=== PATIENT | female | born 1960 | race Caucasian/White ===

== ENCOUNTER 2017-01-10 11:41 | Observation (INO) ==
--- NOTE | 2017-01-10 12:14 | Emergency Department Note ---
Disposition Clinical Impression: Hyperglycemia Altered mental status Qualifiers: Altered mental status type: disorientation Qualified Code(s): R41.0 - Disorientation, unspecified Disposition: Admitted As Inpatient Condition: Good Time of Disposition: 16:52 General Adult HPI - General Chief complaint: ED General Medical Stated complaint: "want ECF placement immediately" Time Seen by Provider: 01/10/17 11:48 Source: patient, family Limitations: age Nursing Notes Reviewed: Yes Vital Signs Reviewed: Yes - History of Present Illness HPI Narrative: Patient's family states that she has been falling frequently and is unable to care for herself at home. She does live alone. Family states that she cannot remember when or if she has taken her insulin. And that she is getting her medications mixed up. They are concerned for patient's well-being and say that she cannot take care of herself at home by herself. Pain Scale: 0 - Related Data Home Medications Medication Instructions Recorded Confirmed Acetaminophen [Tylenol] 650 mg PO Q6H PRN 01/10/17 01/10/17 Aspirin Enteric Coated [Aspirin EC] 81 mg PO DAILY 01/10/17 01/10/17 Atorvastatin [Lipitor] 40 mg PO HS 01/10/17 01/10/17 Cholecalciferol (D-3) [Vitamin D] 1,000 unit PO DAILY 01/10/17 01/10/17 CloNIDine Patch [Catapres-TTS] 0.1 mg TD QWEEK 01/10/17 01/10/17 DiphenhydraMINE [Benadryl] 25 mg PO Q4H PRN 01/10/17 01/10/17 Furosemide [Lasix] 40 mg PO DAILY 01/10/17 01/10/17 Gabapentin [Neurontin] 300 mg PO BID 01/10/17 01/10/17 Insulin ASPART [Novolog Flexpen] 0 unit SQ TIDWM 01/10/17 01/10/17 Insulin DETEMIR [Levemir Flextouch] 30 unit SQ QAM 01/10/17 01/10/17 Levothyroxine [Synthroid] 150 mcg PO DAILY 01/10/17 01/10/17 Lisinopril [Zestril] 40 mg PO BID 01/10/17 01/10/17 Pantoprazole Sodium [Protonix] 40 mg PO DAILY 01/10/17 01/10/17 Sertraline [Zoloft] 50 mg PO DAILY 01/10/17 01/10/17 Thiamine (B-1) [Vitamin B-1] 100 mg PO DAILY 01/10/17 01/10/17 Tramadol HCl [Ultram] 50 mg PO Q12H PRN 01/10/17 01/10/17 hydrOXYzine HCl [Hydroxyzine HCl] 25 mg PO Q8H PRN 01/10/17 01/10/17 Allergies Allergy/AdvReac Type Severity Reaction Status Date / Time No Known Allergies Allergy Verified 01/10/17 11:47 Review of Systems: Patient denies any fevers or chills. She denies any shortness of breath or chest pain. She does report some left-sided rib pain. She denies any nausea vomiting or diarrhea. She denies any abdominal pain. She denies any edema to her extremities out of the normal for her. She denies any headache or vision changes. She denies any hematochezia or melena or hematuria. All systems ED: reviewed and negative except as stated. Past Medical History - Past Medical History Medical history: Reports: CVA, diabetes, hypertension, myocardial infarction, renal disease, other - Social History Smoking Status: Never smoker Alcohol use: Reports: none Drug use: Reports: none Physical Exam - General Limitations: altered mental status (Confused), age General appearance: in no apparent distress - Head Head exam: atraumatic, normocephalic, normal inspection - Eye Eye exam: Present: normal appearance, PERRL, EOMI. Absent: scleral icterus - ENT ENT exam: normal exam, normal oropharynx, mucous membranes moist - Neck Neck exam: Present: normal inspection, full ROM, trachea midline. Absent: tenderness, meningismus, lymphadenopathy - Chest Chest inspection: Present: normal inspection, symmetric chest wall rise, tenderness (to left ribs.) - Respiratory Respiratory exam: Present: normal lung sounds bilaterally. Absent: respiratory distress, wheezes, accessory muscle use - Cardiovascular Cardiovascular exam: Present: regular rate, normal rhythm, normal heart sounds - Abdominal Exam Abdominal exam: Present: soft, Non-Tender, normal bowel sounds. Absent: tenderness, distention, guarding, rebound, rigidity, organomegaly - Extremities Exam Extremities exam: Present: normal inspection, full ROM, normal capillary refill , pedal edema (Bilateral to mid tibia.). Absent: tenderness - Back Exam Back exam: Present: normal inspection, full ROM. Absent: tenderness - Neurological Exam Neurological exam: Present: alert - Psychiatric Psychiatric exam: Present: normal affect, normal mood - Skin Skin exam: Present: warm, dry, intact, normal color. Absent: rash, cyanosis, diaphoresis, erythema Course Course Narrative: Female patient presenting to the emergency department with her sister. Patient is somewhat confused. Patient's sister states this is normal for her. The sister is expressing concern for the patient. She states the patient has had an increase in her falls recently. She did have a fall week ago that she has been evaluated for and is still complaining of left-sided rib pain. She states she did get x-rays and told there were no fractures. She states the patient is mixing up her medication and does not know when she takes her insulin when she does not. The patient is alert to her name and the month but is unaware of the year or the hospital that she is at. She does not she is in a hospital but she thinks she is at [facility]. The patient states that she has had several falls since her last fall. She does not think that she has lost consciousness since then. Due to patient's altered mental status and frequent falls we will get a head CT. We will also get a chest x-ray and basic lab workup. I anticipate admission for her confusion and inability to care for herself while at home. She does live alone. The sister states that the patient did have home health however they have since canceled their services due to the patient not being able to take care of herself. They are requesting ECF placement. - Reevaluation(s) Reevaluation #1: Patient is hyperglycemic. We have given her 10 units of insulin. Her head CT and chest x-ray are normal. Her lab work is basically normal. We will admit her to the hospital for failure to thrive and altered mental status and hyperglycemia. - Consultations Consultation #1: Mindi ALANIZ accepeted Pt in stable condition and is requesting an ammonia level. I have ordered this. Time: 17:08 Vital Signs Temperature 98.1 F 01/10/17 11:43 Pulse Rate 87 01/10/17 11:43 Respiratory Rate 18 01/10/17 11:43 Blood Pressure 136/59 01/10/17 11:43 O2 Sat by Pulse Oximetry 97 01/10/17 11:43 Temperature 98.2 F 01/11/17 04:29 Pulse Rate 86 01/11/17 04:29 Respiratory Rate 16 01/11/17 04:29 Blood Pressure 167/62 01/11/17 04:29 O2 Sat by Pulse Oximetry 95 01/11/17 04:29 Oxygen Delivery Oxygen Delivery Room Air Medical Decision Making - Medical Records Medical records reviewed: Yes I reviewed the patient's medical records. - Lab Data Lab results reviewed: Yes I reviewed the patient's lab results. Result diagrams: 01/11/17 05:31 01/10/17 13:18 Lab Results 01/10/17 01/10/17 01/10/17 Range/Units 13:16 13:18 13:18 WBC 6.5 (4.3-11.1) K/mcL RBC 2.66 L (3.82-4.97) M/mcL Hgb 8.1 L (11.5-15.4) g/dL Hct 25.7 L (35.3-44.9) % MCV 96.6 (83.0-100.0) fL MCH 30.5 (28.0-33.3) pg MCHC 31.5 L (31.6-35.5) g/dL RDW 18.2 H (11.5-14.5) % Plt Count 258 (140-400) K/mcL MPV 11.8 (9.4-12.4) fL Immature Gran % 0.5 (0-4) % Seg Neutrophils % 70.3 % Lymphocytes % 14.4 % Monocytes % 9.0 % Eosinophils % 5.2 % Basophils % 0.6 % Neutrophils # 4.6 (1.6-8.9) K/mcL Lymphocytes # 0.9 (0.6-4.6) K/mcL Monocytes # 0.6 (0.0-1.3) K/mcL Eosinophils # 0.3 (0.0-0.6) K/mcL Basophils # 0.0 (0.0-0.2) K/mcL Immature Plt Fraction 6.6 H (1.1-6.1) % Sodium 135 L (136-145) mEq/L Potassium 4.4 (3.5-4.5) mEq/L Chloride 94 L (98-109) mEq/L Carbon Dioxide 30 H (19-29) mEq/L BUN 22 H (7-20) mg/dL Creatinine 2.54 H (0.57-1.11) mg/dL Est GFR ( Amer) 24 L (> 60) Est GFR (Non-Af Amer) 20 L (> 60) BUN/Creatinine Ratio 9 (6-26) Glucose 440 H (70-99) mg/dL POC Glucose 418 H* (58-89) Calculated Osmolality 302 H (280-300) Calcium 8.6 (8.6-10.8) mg/dL Troponin I (0-0.03) ng/mL Urine Color (Yellow) Urine Clarity (Clear) Urine pH (5.0-8.0) pH Units Ur Specific [place] (1.010-1.025) Urine Protein (Neg-Trace) mg/dL Urine Glucose (UA) (Normal) mg/dL Urine Ketones (Negative) mg/dL Urine Blood (Negative) Urine Nitrite (Negative) Urine Bilirubin (Negative) Urine Urobilinogen (Normal) mg/dL Ur Leukocyte Esterase (Negative) Urine Microscopic RBC (0-3) per hpf Urine Microscopic WBC (0-3) per hpf Ur Squamous Epith Cells (None-Few) per lpf Urine Bacteria (None-Few) per hpf Ur Culture Indicated? (NO) Stool Occult Blood (Negative) 01/10/17 01/10/17 01/10/17 Range/Units 13:18 15:23 16:13 WBC (4.3-11.1) K/mcL RBC (3.82-4.97) M/mcL Hgb (11.5-15.4) g/dL Hct (35.3-44.9) % MCV (83.0-100.0) fL MCH (28.0-33.3) pg MCHC (31.6-35.5) g/dL RDW (11.5-14.5) % Plt Count (140-400) K/mcL MPV (9.4-12.4) fL Immature Gran % (0-4) % Seg Neutrophils % % Lymphocytes % % Monocytes % % Eosinophils % % Basophils % % Neutrophils # (1.6-8.9) K/mcL Lymphocytes # (0.6-4.6) K/mcL Monocytes # (0.0-1.3) K/mcL Eosinophils # (0.0-0.6) K/mcL Basophils # (0.0-0.2) K/mcL Immature Plt Fraction (1.1-6.1) % Sodium (136-145) mEq/L Potassium (3.5-4.5) mEq/L Chloride (98-109) mEq/L Carbon Dioxide (19-29) mEq/L BUN (7-20) mg/dL Creatinine (0.57-1.11) mg/dL Est GFR ( Amer) (> 60) Est GFR (Non-Af Amer) (> 60) BUN/Creatinine Ratio (6-26) Glucose (70-99) mg/dL POC Glucose 503 H* (58-89) Calculated Osmolality (280-300) Calcium (8.6-10.8) mg/dL Troponin I 0.00 (0-0.03) ng/mL Urine Color (Yellow) Urine Clarity (Clear) Urine pH (5.0-8.0) pH Units Ur Specific [place] (1.010-1.025) Urine Protein (Neg-Trace) mg/dL Urine Glucose (UA) (Normal) mg/dL Urine Ketones (Negative) mg/dL Urine Blood (Negative) Urine Nitrite (Negative) Urine Bilirubin (Negative) Urine Urobilinogen (Normal) mg/dL Ur Leukocyte Esterase (Negative) Urine Microscopic RBC (0-3) per hpf Urine Microscopic WBC (0-3) per hpf Ur Squamous Epith Cells (None-Few) per lpf Urine Bacteria (None-Few) per hpf Ur Culture Indicated? (NO) Stool Occult Blood Positive A (Negative) 01/10/17 01/10/17 Range/Units 16:13 16:27 WBC (4.3-11.1) K/mcL RBC (3.82-4.97) M/mcL Hgb (11.5-15.4) g/dL Hct (35.3-44.9) % MCV (83.0-100.0) fL MCH (28.0-33.3) pg MCHC (31.6-35.5) g/dL RDW (11.5-14.5) % Plt Count (140-400) K/mcL MPV (9.4-12.4) fL Immature Gran % (0-4) % Seg Neutrophils % % Lymphocytes % % Monocytes % % Eosinophils % % Basophils % % Neutrophils # (1.6-8.9) K/mcL Lymphocytes # (0.6-4.6) K/mcL Monocytes # (0.0-1.3) K/mcL Eosinophils # (0.0-0.6) K/mcL Basophils # (0.0-0.2) K/mcL Immature Plt Fraction (1.1-6.1) % Sodium (136-145) mEq/L Potassium (3.5-4.5) mEq/L Chloride (98-109) mEq/L Carbon Dioxide (19-29) mEq/L BUN (7-20) mg/dL Creatinine (0.57-1.11) mg/dL Est GFR ( Amer) (> 60) Est GFR (Non-Af Amer) (> 60) BUN/Creatinine Ratio (6-26) Glucose (70-99) mg/dL POC Glucose 473 H* (58-89) Calculated Osmolality (280-300) Calcium (8.6-10.8) mg/dL Troponin I (0-0.03) ng/mL Urine Color Yellow (Yellow) Urine Clarity Clear (Clear) Urine pH 7.0 (5.0-8.0) pH Units Ur Specific [place] 1.020 (1.010-1.025) Urine Protein >=300 H (Neg-Trace) mg/dL Urine Glucose (UA) 500 H (Normal) mg/dL Urine Ketones Trace H (Negative) mg/dL Urine Blood Trace-intact H (Negative) Urine Nitrite Negative (Negative) Urine Bilirubin Negative (Negative) Urine Urobilinogen Normal (Normal) mg/dL Ur Leukocyte Esterase Negative (Negative) Urine Microscopic RBC 0-3 (0-3) per hpf Urine Microscopic WBC 0-3 (0-3) per hpf Ur Squamous Epith Cells Few (None-Few) per lpf Urine Bacteria Few (None-Few) per hpf Ur Culture Indicated? NO (NO) Stool Occult Blood (Negative) - Radiology Data Radiology results reviewed: Yes I reviewed the patient's radiology results. Chest X-Ray 01/10/17 12:34 IMPRESSION: 1. Low lung volumes with bibasilar atelectasis. D/ / 01/10/2017 13:54:13 Zachery Frazier MD / Jo Ann Kang Interpreting Provider: Zachery Frazier MD Head CT 01/10/17 12:34 IMPRESSION: No acute intracranial abnormality. D/ / Amaury Cobian MD / Amaury Cobian MD Interpreting Provider: Amaury Cobian MD Attestation Statement - Attestation Attestation: I, Joseph Suarez, examined this patient and my medical decision-making was reviewed with the BRICK WASHER/PA/Advanced Practice Nurse/Resident Physician. I agree with the documented findings, disposition and treatment plan as described except to the extent set forth below. 57-year-old female brought in by family member for concerns of inability to live at home alone. Patient was recently admitted to [facility] for DKA/HHS with a blood sugar of 1500 for the patient. She was discharged within the past week with home health services. Home health services determined the patient to be unsafe to stay at home alone and refused to take responsibility for the patient. Patient was seen by her primary care provider or Center in the emergency department for placement in an extended care facility. Upon arrival the patient is mildly confused, thinking that we are in [place] at this time. Laboratory evaluation the patient does have a hemoglobin 8.1 and an occult blood positive stool. Patient denies recent hematochezia or melena and does not know what her baseline hemoglobin is. Patient has a blood sugar that is greater than 450, she was given insulin in the emergency department. She does not have an anion gap here today. Patient is still mildly confused and will be admitted to the hospital for anemia with GI bleeding as well as for altered mental status. She will likely need placement in a extended care facility.
[2017-01-10 13:28] LABS: Basophils % 0.6 %; Eosinophils # 0.3 K/mcL (0.0-0.6); Eosinophils % 5.2 %; Hematocrit 25.7 % (35.3-44.9); Hemoglobin 8.1 g/dL (11.5-15.4); Immature Granulocytes % 0.5 % (0-4); Immature Platelets 6.6 % (1.1-6.1); Lymphocytes # 0.9 K/mcL (0.6-4.6); Lymphocytes % 14.4 %; Mean Corpuscular HGB Conc 31.5 g/dL (31.6-35.5); Mean Corpuscular Hemoglobin 30.5 pg (28.0-33.3); Mean Corpuscular Volume 96.6 fL (83.0-100.0); Mean Platelet Volume 11.8 fL (9.4-12.4); Monocytes # 0.6 K/mcL (0.0-1.3); Neutrophils # 4.6 K/mcL (1.6-8.9); Platelet Count 258 K/mcL (140-400); Red Blood Count 2.66 M/mcL (3.82-4.97); Red Cell Distribution Width 18.2 % (11.5-14.5); Segmented Neutrophils % 70.3 %
[2017-01-10 13:42] LABS: Calcium 8.6 mg/dL (8.6-10.8); Potassium 4.4 mEq/L (3.5-4.5)
[2017-01-10] MEDS: Insulin Regular, Human 100 UNIT/ML SQ ONE ×2 (15:29→20:59)
[2017-01-10 16:43] LABS: Bilirubin,Urine Negative (Negative); Blood,Urine Trace-intact (Negative); Clarity,Urine Clear (Clear); Color,Urine Yellow (Yellow); Glucose,Urine (UA) 500 mg/dL (Normal); Ketones,Urine Trace mg/dL (Negative); Leukocyte Esterase,Urine Negative (Negative); Nitrite,Urine Negative (Negative); Protein,Urine >=300 mg/dL (Neg-Trace); Urobilinogen,Urine Normal (Normal)
[2017-01-10 16:55] LABS: Bacteria,Urine Few per hpf (None-Few); RBC,Urine 0-3 per hpf (0-3); Squamous Epithelial Cell,Urine Few per lpf (None-Few); WBC,Urine 0-3 per hpf (0-3)
[2017-01-10] MEDS ORDERED: Naloxone 0.4 MG/ML INJ IVP PRN (20:32)
[2017-01-10] MEDS ORDERED: Dextrose Gel 15 GM PO PRN ×2 (20:34)
[2017-01-10] MEDS ORDERED: hydrOXYzine pamoate 25 MG CAPSULE PO PRN (20:34)
[2017-01-10] MEDS ORDERED: D5% in Water 1,000 ML IVC PRN (20:34)
[2017-01-10] MEDS ORDERED: traMADol 50 MG TABLET PO PRN (20:34)
[2017-01-10] MEDS ORDERED: *HR* Dextrose 50 % in Water (Syg) 50 ML SYRINGE IVP PRN (20:34)
[2017-01-10] MEDS ORDERED: CloNIDine Patch 0.1 MG PATCH (WEEKLY) TD SCH (20:45)
--- NOTE | 2017-01-10 20:55 | Internal Med History&Physical ---
Date of Encounter: 01/10/17 Time of Encounter: 20:52 Assessment and Plan (1) Encephalopathy Current visit: Yes Status: Acute With reported confusion prior to admission. Neurologically intact, LOC [address] Head CT negative, ammonia level normal. Appears back to baseline. Will hold on further workup at this time. Consider MRI, neurology consult if symptoms recur (2) GI bleed Current visit: Yes Status: Acute Hgb 8.1, occult stool positive. Baseline hemoglobin unknown. No active bleeding, denies melena. Trend Hgb, transfuse for Hgb less than 7 as she does have history of CAD. Plan is for her to go to SNF at discharge and with hemoglobin being borderline she would likely need to be seen by GI in house. Electronic consult for GI placed; will need to be called in in the morning then consider outpatient follow-up. Qualifiers: GI bleed type/associated pathology: melena Qualified Code(s): K92.1 - Melena (3) Diabetes Current visit: Yes Status: Acute Per history and uncontrolled. Apparently has not been taking medications as prescribed. Blood sugar greater than 400 on admission received 10 units insulin in the ED. Continue home long-acting insulin, add sliding scale insulin while inpatient. Monitor blood sugars and titrate when necessary. Hgb A1c pending. Qualifiers: Diabetes mellitus type: type 2 Diabetes mellitus complication status: with hyperglycemia Diabetes mellitus assisted insulin use: with assisted use Qualified Code(s): E11.65 - Type 2 diabetes mellitus with hyperglycemia; Z79.4 - equipment operator intermodal yard (current) use of insulin (4) ESRD (end stage renal disease) Current visit: Yes Status: Acute Per history. HD on Saturday//Saturday. Nephrology will need consult and in the a.m. (5) CVA (cerebral vascular accident) Current visit: Yes Status: Acute Per history with left-sided weakness. Holding home ASA with possible GI bleed, continue statin. Qualifiers: Qualified Code(s): I63.9 - Cerebral infarction, unspecified (6) CAD (coronary artery disease), [place] coronary artery Current visit: Yes Status: Acute Per history. Asymptomatic, denies chest pain. Holding home aspirin with possible GI bleed continue statin. Qualifiers: Qualified Code(s): I25.10 - Atherosclerotic heart disease of [place] coronary artery without angina pectoris (7) DVT prophylaxis Current visit: Yes Status: Acute SCD Internal Medicine - H&P: HPI Chief complaint: falls Admitted From: Home Plans for Post Hospital Care: [facility] History of present illness: Ms. Solis is a 57 year old female end-stage renal disease on HD, CVA, diabetes , CAD who presented to [facility] on 01/10/2017 from home with complaints of frequent falls and intermittent confusion. She is requesting custodial placement. She is placed in observation status. Formation obtained from chart review and patient report patient says it she has been intermittently confused and falling for the past 2 years, she is followed twice this past week her sister was concerned therefore brought her to the emergency room. On my exam she has no complaints except for being hungry and wanting to eat she does tell me that she does not feel that she can safely go home and that she does need help with her medicine she denies chest pain no shortness of breath no abdominal pain and nausea vomiting or diarrhea. Past Med Surg Social Fam HX - Past Medical History Medical history: CVA, diabetes, hypertension, myocardial infarction, renal disease, other - Past Surgical History Surgical History: non-contributory - Social History Smoking Status: Never smoker Alcohol use: none Drug use: none - Family History Mother History Unknown: Yes Internal Medicine - H&P: Meds Acetaminophen [Tylenol] 650 mg PO Q6H PRN 01/10/17 [History] Aspirin Enteric Coated [Aspirin EC] 81 mg PO DAILY 01/10/17 [History] Atorvastatin [Lipitor] 40 mg PO HS 01/10/17 [History] Cholecalciferol (D-3) [Vitamin D] 1,000 unit PO DAILY 01/10/17 [History] CloNIDine Patch [Catapres-TTS] 0.1 mg TD QWEEK 01/10/17 [History] DiphenhydraMINE [Benadryl] 25 mg PO Q4H PRN 01/10/17 [History] Furosemide [Lasix] 40 mg PO DAILY 01/10/17 [History] Gabapentin [Neurontin] 300 mg PO BID 01/10/17 [History] Insulin ASPART [Novolog Flexpen] 0 unit SQ TIDWM 01/10/17 [History] Insulin DETEMIR [Levemir Flextouch] 30 unit SQ QAM 01/10/17 [History] Levothyroxine [Synthroid] 150 mcg PO DAILY 01/10/17 [History] Lisinopril [Zestril] 40 mg PO BID 01/10/17 [History] Pantoprazole Sodium [Protonix] 40 mg PO DAILY 01/10/17 [History] Sertraline [Zoloft] 50 mg PO DAILY 01/10/17 [History] Thiamine (B-1) [Vitamin B-1] 100 mg PO DAILY 01/10/17 [History] Tramadol HCl [Ultram] 50 mg PO Q12H PRN 01/10/17 [History] hydrOXYzine HCl [Hydroxyzine HCl] 25 mg PO Q8H PRN 01/10/17 [History] Allergies No Known Allergies Allergy (Verified 01/10/17 11:47) All Systems PM: A 10-system review of systems was performed and is negative for pertinent findings except as documented above in the HPI. - Constitutional Constitutional: fatigue, no chills, no fever(s), no night sweats - EENT Eyes: no change in vision, no discharge, no pain, no photophobia Ears: no ear discharge, no ear pain, no tinnitus Nose, mouth and throat: no dysphagia, no nasal discharge, no neck pain, no sore throat - Cardiovascular Cardiovascular ROS IM: no chest pain, no diaphoresis, no dyspnea, no lightheadedness, no palpitations, no syncope - Respiratory Respiratory: no cough, no dyspnea, no wheezing, no excessive phlegm production - Gastrointestinal Gastrointestinal: no abdominal pain, no diarrhea, no hematemesis, no hematochezia, no melena, no nausea, no vomiting - Genitourinary Genitourinary: no change in urinary stream, no dysuria, no flank pain, no hematuria - Musculoskeletal Musculoskeletal ROS IM: no numbness, no tingling - Integumentary Integumentary IM: no rash, no unusual bruising - Neurological Neurological ROS: no confusion, no convulsions, no focal weakness, no numbness, no tingling, no tremor(s) - Hematologic/Lymphatic Hematologic/Lymphatic: no easy bruising - Constitutional Vitals: Temp Pulse Resp BP Pulse Ox 98.0 F 76 18 136/66 94 01/10/17 18:59 01/10/17 18:59 01/10/17 18:59 01/10/17 18:59 01/10/17 18:59 General appearance: Present: A&O X 3, no acute distress - Head Head exam: Present: atraumatic, normocephalic - Eye Eye exam: Present: PERRL, conjuntiva pink, sclera anicteric Pupils: Present: PERRL - Neck Neck exam general surgery: Present: supple, trachea midline. Absent: lymphadenopathy - Respiratory Respiratory exam: Present: CTAB. Absent: accessory muscle use, rales, rhonchi, wheezes - Cardiovascular Cardiovascular exam: Present: RRR, +S1, +S2. Absent: diastolic murmur, gallop, rubs, systolic murmur - GI/Abdominal GI/Abdominal exam: Present: normal bowel sounds, soft, no peritoneal signs. Absent: distended, tenderness - Extremities Exam Extremities exam: Present: warm, radial pulses palpable and symetrical. Absent : calf tenderness, cyanotic, pedal edema Additional comments: Right upper arm fistula positive/positive - Neurological Exam Neurological exam: Present: CN II-XII intact, oriented X3, no focal deficits. Absent: pronater drift, facial droop, speech deficit Additional comments: Left-sided weakness strength 4 out of 5. - Skin Skin exam: Present: dry, intact Internal Med - H&P Results - Labs CBC & Chem 7: 01/10/17 13:18 01/10/17 13:18
[2017-01-10] MEDS ORDERED: Insulin LISPRO 300 UNITS/3 ML VIAL SQ SCH (21:00)
[2017-01-10 21:24] LABS: Hemoglobin A1C 7.8 %
[2017-01-10] MEDS ORDERED: *HR* Heparin 5,000 UNIT/ML VIAL SQ SCH (22:00)
[2017-01-10] MEDS: Gabapentin 300 MG CAPSULE PO SCH (23:10)
[2017-01-10] MEDS: Lisinopril 20 MG TABLET PO SCH (23:10)
[2017-01-11 06:02] LABS: Basophils % 0.6 %; Eosinophils # 0.4 K/mcL (0.0-0.6); Eosinophils % 7.8 %; Hematocrit 25.7 % (35.3-44.9); Hemoglobin 7.9 g/dL (11.5-15.4); Immature Granulocytes % 0.6 % (0-4); Lymphocytes # 0.9 K/mcL (0.6-4.6); Lymphocytes % 19.1 %; Mean Corpuscular HGB Conc 30.7 g/dL (31.6-35.5); Mean Corpuscular Volume 97.7 fL (83.0-100.0); Mean Platelet Volume 11.8 fL (9.4-12.4); Monocytes # 0.4 K/mcL (0.0-1.3); Monocytes % 9.1 %; Neutrophils # 3.1 K/mcL (1.6-8.9); Platelet Count 278 K/mcL (140-400); Red Blood Count 2.63 M/mcL (3.82-4.97); Red Cell Distribution Width 17.7 % (11.5-14.5); Retculocyte # 0.04 M/mcL (0.05-0.10); Reticulocyte % 1.6 % (1.6-2.8); Segmented Neutrophils % 62.8 %
[2017-01-11 06:29] LABS: % Iron Saturation 44 % (15-50); Iron 88 mcg/dL (50-170); Lactate Dehydrogenase 261 Units/L (159-327); Transferrin 142 mg/dL (180-382)
[2017-01-11 07:03] LABS: Folate 8.3 ng/mL (7.0-31.4)
[2017-01-11] MEDS ORDERED: Insulin LISPRO 300 UNITS/3 ML VIAL SQ SCH ×2 (07:30→21:00)
[2017-01-11] MEDS: Lisinopril 20 MG TABLET PO SCH ×2 (08:55→20:06)
[2017-01-11] MEDS: Furosemide 40 MG TABLET PO SCH (08:57)
[2017-01-11] MEDS: Gabapentin 300 MG CAPSULE PO SCH ×2 (08:57→20:06)
[2017-01-11] MEDS: Insulin DETEMIR 100 UNIT/ML X5UNITS SQ SCH (08:57)
[2017-01-11] MEDS ORDERED: Insulin Human Regular 10 UNIT in 0.9 % Sodium Chloride 10 ML IV ONE (09:00)
--- NOTE | 2017-01-11 09:20 | Nephrology Consult Note ---
Date of Encounter: 01/11/17 Time of Encounter: : Assessment and Plan (1) ESRD (end stage renal disease) Current Visit: Yes Status: Acute Patient reports a history of end-stage renal disease related to diabetic renal disease. Her last dialysis was yesterday. We will provide dialysis every Saturday while she is here in the hospital. Iron studies should be checked if they have not already. Could also get her started on some Aranesp. (2) Type 2 diabetes mellitus with diabetic chronic kidney disease Current Visit: Yes Status: Acute Qualifiers: Diabetes mellitus director long term care insulin use: with director long term care use Chronic kidney disease stage: on chronic dialysis Qualified Code(s): E11.22 - Type 2 diabetes mellitus with diabetic chronic kidney disease; N18.6 - End stage renal disease; Z79.4 - shelter (current) use of insulin; Z99.2 - Dependence on renal dialysis (3) GI bleed Current Visit: Yes Status: Acute Qualifiers: GI bleed type/associated pathology: melena Qualified Code(s): K92.1 - Melena History of Present Illness - History of Present Illness This is a 57-year-old female who reports a history of end-stage renal disease. She says she undergoes dialysis every Saturday in [facility]. She has been on dialysis since March 24. She reports a history of long-standing diabetes and says that she has end-stage renal disease related to diabetes. She dialyzes for 4 hours with a left-sided tunneled dialysis catheter. She has an AV fistula in the right arm which is not yet mature. She is followed by the nephrology group from [facility]. Patient was admitted because of frequent falls. She also was noted to have a low hemoglobin in the face of guaiac positive stools. Currently she is without any specific complaints. Past Med Surg Social Fam HX - Past Medical History Medical history: CVA, diabetes, hypertension, myocardial infarction, renal disease, other - Past Surgical History Surgical History: non-contributory - Social History Smoking Status: Never smoker Alcohol use: none Drug use: none - Family History Mother History Unknown: Yes Medications and Allergies Acetaminophen [Tylenol] 650 mg PO Q6H PRN 01/10/17 [History] Aspirin Enteric Coated [Aspirin EC] 81 mg PO DAILY 01/10/17 [History] Atorvastatin [Lipitor] 40 mg PO HS 01/10/17 [History] Cholecalciferol (D-3) [Vitamin D] 1,000 unit PO DAILY 01/10/17 [History] CloNIDine Patch [Catapres-TTS] 0.1 mg TD QWEEK 01/10/17 [History] DiphenhydraMINE [Benadryl] 25 mg PO Q4H PRN 01/10/17 [History] Furosemide [Lasix] 40 mg PO DAILY 01/10/17 [History] Gabapentin [Neurontin] 300 mg PO BID 01/10/17 [History] Insulin ASPART [Novolog Flexpen] 0 unit SQ TIDWM 01/10/17 [History] Insulin DETEMIR [Levemir Flextouch] 30 unit SQ QAM 01/10/17 [History] Levothyroxine [Synthroid] 150 mcg PO DAILY 01/10/17 [History] Lisinopril [Zestril] 40 mg PO BID 01/10/17 [History] Pantoprazole Sodium [Protonix] 40 mg PO DAILY 01/10/17 [History] Sertraline [Zoloft] 50 mg PO DAILY 01/10/17 [History] Thiamine (B-1) [Vitamin B-1] 100 mg PO DAILY 01/10/17 [History] Tramadol HCl [Ultram] 50 mg PO Q12H PRN 01/10/17 [History] hydrOXYzine HCl [Hydroxyzine HCl] 25 mg PO Q8H PRN 01/10/17 [History] Allergies No Known Allergies Allergy (Verified 01/10/17 11:47) Review of Systems Constitutional: weakness Eyes: bilateral: blurred vision (patient denies), diplopia (patient denies) Nose, mouth and throat: no dizziness, no headache(s) Cardiovascular: dyspnea on exertion, no chest pain, no palpitations Respiratory: dyspnea on exertion, no cough, no dyspnea Gastrointestinal: no abdominal pain, no change in bowel habits Musculoskeletal: no muscle weakness, no numbness Integumentary: no hirsutism, no striae Neurological: as per HPI Psychiatric: no depression, no difficulty concentrating Endocrine: as per HPI Hematologic/Lymphatic: no easy bruising, no lymphadenopathy Exam - Vital Signs Vital signs: Initial Vital Signs Temp Pulse Resp BP Pulse Ox 98.1 F 87 18 136/59 97 01/10/17 11:43 01/10/17 11:43 01/10/17 11:43 01/10/17 11:43 01/10/17 11:43 Vital Signs - Last 8 Hours Temp Pulse Resp BP Pulse Ox 01/11/17 08:27 98.3 F 91 17 192/113 94 01/11/17 04:29 98.2 F 86 16 167/62 95 Intake and Output 01/10/17 01/11/17 01/11/17 23:59 07:59 15:59 Intake Total 120 / 120 240 / 240 360 / 360 Output Total 0 / 0 Balance 120 / 120 240 / 240 360 / 360 Intake: Oral 120 / 120 240 / 240 360 / 360 Output: Urine 0 / 0 Other: Meal Breakfast Percent of Meal Consumed 100% Stool Size Moderate Moderate Stool Consistency formed Stool Color Brown Brown Yellow Yellow # Voids 1 # Bowel Movements 1 1 Weight 82.2 kg Blood Glucose* 276 537 Patient Weight 01/11/17 23:59 Weight 82.2 kg - General Appearance Exam: The patient is alert and oriented. She is in no acute distress. Neck is supple. Lungs clear to auscultation anteriorly. Heart regular rate and rhythm with a 2/6 systolic ejection murmur. Abdomen shows normal bowel sounds. No bruits masses again a megaly or tenderness. There is minimal lower extremity swelling. There is a tunnel dialysis catheter in the left chest. There is a functioning AV fistula in the upper portion of the right upper extremity. Results - Lab Results 01/11/17 05:31 01/10/17 13:18 Most recent lab results Calcium 8.6 mg/dL (8.6-10.8) 01/10/17 13:18 Consult Discharge Plan - Plan Referrals: Nohemi Jewell DO [Primary Care Provider] -
[2017-01-11] MEDS ORDERED: traMADol 50 MG TABLET PO PRN (09:25)
[2017-01-11] MEDS ORDERED: Acetaminophen 325 MG TABLET PO PRN (09:25)
[2017-01-11] MEDS ORDERED: Darbepoetin 100 MCG/0.5 ML SYRINGE SQ SCH (09:30)
[2017-01-11 10:54] LABS: % Iron Saturation 37 % (15-50); Iron 73 mcg/dL (50-170); Transferrin 142 mg/dL (180-382)
[2017-01-11 11:45] LABS: Ferritin 2596 ng/ml (5-204)
[2017-01-11] MEDS: Insulin LISPRO 300 UNITS/3 ML VIAL SQ SCH ×4 (12:01→19:42)
[2017-01-11 12:05] LABS: Hematocrit 27.7 % (35.3-44.9); Hemoglobin 8.5 g/dL (11.5-15.4)
--- NOTE | 2017-01-11 14:15 | Internal Med Progress Note ---
Date of Encounter: 01/11/17 Time of Encounter: 09:15 - Assessment and plan (1) Anemia Current Visit: Yes Status: Chronic Assessment and plan: Hemoglobin levels remain stable. Stools were positive for blood. Patient will need colonoscopy but this can be done as outpatient as patient is not having any active GI bleed and her vital signs are stable. Labs show normal iron, folic acid and vitamin B12 levels. Continue Aranesp per nephrology recommendations Qualifiers: Anemia type: other cause Other causes of anemia: chronic disease, kidney Qualified Code(s): N18.9 - Chronic kidney disease, unspecified; D63.1 - Anemia in chronic kidney disease (2) CAD (coronary artery disease), [place] coronary artery Current Visit: Yes Status: Chronic Assessment and plan: Will resume aspirin and statin Qualifiers: [place] vs. transplanted heart: [place] heart Associated angina: without angina Qualified Code(s): I25.10 - Atherosclerotic heart disease of [place] coronary artery without angina pectoris (3) CVA (cerebral vascular accident) Current Visit: Yes Status: Chronic Assessment and plan: No focal weakness or numbness. Continue aspirin and statin Qualifiers: CVA mechanism: other Qualified Code(s): I63.8 - Other cerebral infarction (4) Diabetes Current Visit: Yes Status: Chronic Assessment and plan: Uncontrolled. Patient's blood sugar this morning was 537. Will increase insulin regimen. Monitor blood sugars closely. We will adjust insulin regimen according to her blood sugars. Qualifiers: Diabetes mellitus type: type 2 Diabetes mellitus complication status: with hyperglycemia Diabetes mellitus rat exterminator insulin use: with rat exterminator use Qualified Code(s): E11.65 - Type 2 diabetes mellitus with hyperglycemia; Z79.4 - joint terminal attack controller (current) use of insulin (5) Encephalopathy Current Visit: Yes Status: Resolved Assessment and plan: This has now resolved (6) ESRD (end stage renal disease) Current Visit: Yes Status: Chronic Assessment and plan: Nephrology consulted. Patient will receive hemodialysis while she was in the hospital according to TTS schedule (7) GI bleed Current Visit: Yes Status: Suspected Assessment and plan: Patient denies any hematochezia or melena. Her hemoglobin counts are stable. She did have colonoscopy 3 years back and his family history of colon cancer. We will recommend colonoscopy and upper GI endoscopy but this can be done as outpatient as patient's hemoglobin counts have stabilized and she does have underlying chronic kidney disease which is the more likely cause for her anemia given that her iron levels are normal. Qualifiers: GI bleed type/associated pathology: melena Qualified Code(s): K92.1 - Melena - Subjective Interval history: Patient is feeling better today. Denies any dizziness or lightheadedness. Is well oriented. Denies any pain. No melena or hematochezia. - Constitutional Vitals: Temp Pulse Resp BP Pulse Ox 98.5 F 81 16 127/72 98 01/11/17 12:04 01/11/17 12:04 01/11/17 12:04 01/11/17 12:04 01/11/17 12:04 General appearance: Present: cooperative, A&O X 3, no acute distress, answers questions appropriately - Neck Neck exam general surgery: Present: supple, trachea midline. Absent: lymphadenopathy - Respiratory Respiratory exam: Present: CTAB. Absent: accessory muscle use, rales, rhonchi, wheezes - Cardiovascular Cardiovascular exam: Present: RRR, +S1, +S2. Absent: diastolic murmur, gallop, rubs, systolic murmur - GI/Abdominal GI/Abdominal exam: Present: normal bowel sounds, soft, no peritoneal signs. Absent: distended, tenderness - Extremities Exam Extremities exam: Present: warm, radial pulses palpable and symetrical. Absent : calf tenderness, cyanotic, pedal edema - Neurological Exam Neurological exam: Present: CN II-XII intact, oriented X3, no focal deficits, strengths equal and symetr throughout. Absent: facial droop, speech deficit - Skin Skin exam: Present: dry, intact, pallor Internal Medicine: Result - Labs CBC & Chem 7: 01/11/17 11:53 01/10/17 13:18 Labs: Short CBC 01/11/17 01/11/17 Range/Units 05:31 11:53 WBC 4.9 (4.3-11.1) K/mcL Hgb 7.9 L 8.5 L (11.5-15.4) g/dL Hct 25.7 L 27.7 L (35.3-44.9) % Plt Count 278 (140-400) K/mcL Neutrophils # 3.1 (1.6-8.9) K/mcL Consult Discharge Plan - Plan Referrals: Little,Nohemi E, DO [Primary Care Provider] - - Attending Attestation This document has been at least partially created by [employer] recognition technology by Dr. Graham. Errors in grammar, wording or other phrases may exist. If errors are found after the documentation is signed, they will be addressed individually in the addendum section of this document when appropriate.
[2017-01-12] MEDS: *HR* OxyCODONE/APAP 5/325 TABLET PO PRN ×2 (00:53→20:34)
[2017-01-12 02:56] LABS: Basophils % 0.3 %; Eosinophils # 0.6 K/mcL (0.0-0.6); Eosinophils % 8.8 %; Hemoglobin 8.1 g/dL (11.5-15.4); Immature Granulocytes % 0.4 % (0-4); Lymphocytes # 1.4 K/mcL (0.6-4.6); Lymphocytes % 19.1 %; Mean Corpuscular HGB Conc 31.2 g/dL (31.6-35.5); Mean Corpuscular Hemoglobin 30.3 pg (28.0-33.3); Mean Corpuscular Volume 97.4 fL (83.0-100.0); Mean Platelet Volume 11.7 fL (9.4-12.4); Monocytes # 0.6 K/mcL (0.0-1.3); Monocytes % 8.5 %; Neutrophils # 4.4 K/mcL (1.6-8.9); Platelet Count 298 K/mcL (140-400); Red Blood Count 2.67 M/mcL (3.82-4.97); Red Cell Distribution Width 17.6 % (11.5-14.5); Segmented Neutrophils % 62.9 %
[2017-01-12 03:18] LABS: Albumin 2.5 g/dL (3.5-5.0); Albumin/Globulin Ratio 0.7 (1.1-2.2); Bilirubin,Total 0.3 mg/dL (0.2-1.2); Calcium 8.5 mg/dL (8.6-10.8); Globulin 3.7 g/dL (2.4-3.5); Potassium 4.6 mEq/L (3.5-4.5); Total Protein 6.2 g/dL (6.0-8.3)
[2017-01-12] MEDS ORDERED: *HR* Heparin 5,000 UNIT/ML VIAL IVP ONE (05:34)
[2017-01-12] MEDS ORDERED: *HR* Heparin 5,000 UNIT/ML VIAL IVP PRN ×2 (05:34)
[2017-01-12 06:25] LABS: Prothrombin Time 10.3 Seconds (9.4-12.1)
[2017-01-12 06:27] LABS: Activated Partial Thrombo Time 31.5 Seconds (26.0-36.0)
[2017-01-12 06:36] LABS: Hematocrit 25.6 % (35.3-44.9); Mean Corpuscular HGB Conc 31.3 g/dL (31.6-35.5); Mean Corpuscular Hemoglobin 30.2 pg (28.0-33.3); Mean Corpuscular Volume 96.6 fL (83.0-100.0); Mean Platelet Volume 11.5 fL (9.4-12.4); Platelet Count 304 K/mcL (140-400); Red Blood Count 2.65 M/mcL (3.82-4.97); Red Cell Distribution Width 17.5 % (11.5-14.5)
[2017-01-12] MEDS: Insulin LISPRO 300 UNITS/3 ML VIAL SQ SCH ×4 (07:43→20:36)
--- NOTE | 2017-01-12 08:08 | Nephrology Progress Note ---
Date of Encounter: 01/12/17 Time of Encounter: 08:06 - Assessment and Plan (1) ESRD (end stage renal disease) Current Visit: Yes Status: Chronic Patient will undergo dialysis today. Orders have been submitted. She continues on Aranesp for her anemia. She is awaiting discharge to an extended care facility. (2) Type 2 diabetes mellitus with diabetic chronic kidney disease Current Visit: Yes Status: Acute Qualifiers: Diabetes mellitus intermediate school teacher insulin use: with intermediate school teacher use Chronic kidney disease stage: on chronic dialysis Qualified Code(s): E11.22 - Type 2 diabetes mellitus with diabetic chronic kidney disease; N18.6 - End stage renal disease; Z79.4 - terminal computer operator (current) use of insulin; Z99.2 - Dependence on renal dialysis (3) GI bleed Current Visit: Yes Status: Suspected Qualifiers: GI bleed type/associated pathology: melena Qualified Code(s): K92.1 - Melena Subjective Interval history: Patient reports no new complaints. She scheduled for dialysis today. Hemoglobin is 8.0. Iron studies vitamin B12 and folate are within normal limits. She has been placed on Aranesp. Objective - Vital Signs Vital signs: Vital Signs Temp Pulse Resp BP Pulse Ox 01/12/17 07:54 97.9 F 81 17 181/84 94 01/12/17 05:31 88 169/79 01/12/17 04:41 98.3 F 77 16 172/89 93 01/12/17 00:09 97.9 F 83 16 160/84 98 01/11/17 19:09 98.2 F 79 17 139/83 97 01/11/17 12:04 98.5 F 81 16 127/72 98 01/11/17 12:02 127/72 01/11/17 09:48 153/76 01/11/17 08:27 98.3 F 91 17 192/113 94 Intake and Output 01/11/17 01/12/17 01/12/17 23:59 07:59 15:59 Intake Total 0 / 0 Output Total 120 / 120 Balance 0 / 0 -120 / -120 Intake: Oral 0 / 0 Output: Urine 120 / 120 Other: Weight 85.2 kg Blood Glucose* 101 141 Patient Weight 01/12/17 23:59 Weight 85.2 kg - General Appearance Exam: Patient is alert and oriented. She is in no acute distress. Lungs clear to auscultation. Heart regular rate and rhythm. Abdomen benign. No peripheral edema. There is a tunnel dialysis catheter in the left chest and a new AV fistula in the right upper extremity. - Lab 01/12/17 05:45 01/12/17 02:29 Most recent lab results Calcium 8.5 mg/dL (8.6-10.8) L 01/12/17 02:29 Consult Discharge Plan - Plan Referrals: Nohemi Jewell DO [Primary Care Provider] -
[2017-01-12] MEDS ORDERED: 0.9 % Sodium Chloride 250 ML IVC PRN (08:09)
[2017-01-12] MEDS: Gabapentin 300 MG CAPSULE PO SCH ×2 (08:15→20:35)
[2017-01-12] MEDS: Insulin DETEMIR 100 UNIT/ML X5UNITS SQ SCH (08:16)
[2017-01-12] MEDS: Lisinopril 20 MG TABLET PO SCH ×2 (09:00→20:34)
[2017-01-12] MEDS ORDERED: amLODIPine 5 MG TABLET PO SCH (09:00)
[2017-01-12 10:04] LABS: Amphetamine Screen,Urine Negative ng/mL (Cutoff=1000); Barbiturate Screen,Urine Negative ng/mL (Cutoff=200); Benzodiazepines Screen,Urine Negative ng/mL (Cutoff=200); Cannabinoid Screen,Urine Negative ng/mL (Cutoff = 50); Cocaine Screen,Urine Negative ng/mL (Cutoff= 300); Opiate Screen,Urine Negative ng/mL (Cutoff=300); Phencyclidine Screen,Urine Negative ng/mL (Cutoff=25)
--- NOTE | 2017-01-12 13:58 | Internal Med Progress Note ---
Date of Encounter: 01/12/17 Time of Encounter: 09:10 - Assessment and plan (1) Anemia Current Visit: Yes Status: Chronic Assessment and plan: Hemoglobin levels are stable. We will continue to monitor. Iron levels are within normal limits. Vitamin B12 and folic acid levels were also within normal limits. Patient has chronic anemia related to chronic kidney disease. Qualifiers: Anemia type: other cause Other causes of anemia: chronic disease, kidney Qualified Code(s): N18.9 - Chronic kidney disease, unspecified; D63.1 - Anemia in chronic kidney disease (2) CAD (coronary artery disease), [place] coronary artery Current Visit: Yes Status: Chronic Assessment and plan: Will resume aspirin. Continue statin, and lisinopril. Qualifiers: [place] vs. transplanted heart: [place] heart Associated angina: without angina Qualified Code(s): I25.10 - Atherosclerotic heart disease of [place] coronary artery without angina pectoris (3) CVA (cerebral vascular accident) Current Visit: Yes Status: Chronic Assessment and plan: Will resume aspirin. Continue statin. Physical therapy. Qualifiers: CVA mechanism: other Qualified Code(s): I63.8 - Other cerebral infarction (4) Diabetes Current Visit: Yes Status: Chronic Assessment and plan: Patient is having hypoglycemic episodes. We will decrease insulin regimen and monitor blood sugars closely. Qualifiers: Diabetes mellitus type: type 2 Diabetes mellitus complication status: with hypoglycemia Diabetes mellitus complication detail: without coma Diabetes mellitus projects manager insulin use: with projects manager use Qualified Code(s): E11.649 - Type 2 diabetes mellitus with hypoglycemia without coma; Z79.4 - skilled nursing ( current) use of insulin (5) Encephalopathy Current Visit: Yes Status: Resolved (6) ESRD (end stage renal disease) Current Visit: Yes Status: Chronic Assessment and plan: Continue dialysis per nephrology recommendations. (7) GI bleed Current Visit: Yes Status: Suspected Assessment and plan: Hemoglobin levels are stable. Patient may need colonoscopy as outpatient. Currently not having any melena or hematochezia. Qualifiers: GI bleed type/associated pathology: melena Qualified Code(s): K92.1 - Melena - Subjective Interval history: Patient is doing well at this time. She denies any dizziness while sitting up in chair but does get dizzy when she stands up quickly. Denies any chest pain and shortness of breath. No nausea or vomiting. Is due for dialysis later today. - Constitutional Vitals: Temp Pulse Resp BP Pulse Ox 98.4 F 88 20 189/86 96 01/12/17 13:46 01/12/17 12:25 01/12/17 13:46 01/12/17 13:46 01/12/17 12:25 General appearance: Present: cooperative, A&O X 3, no acute distress, answers questions appropriately - Eye Eye exam: Present: EOMI, PERRL - Neck Neck exam general surgery: Present: supple, trachea midline. Absent: lymphadenopathy - Respiratory Respiratory exam: Present: CTAB. Absent: accessory muscle use, rales, rhonchi, wheezes - Cardiovascular Cardiovascular exam: Present: RRR, +S1, +S2. Absent: diastolic murmur, gallop, rubs, systolic murmur - GI/Abdominal GI/Abdominal exam: Present: normal bowel sounds, soft, no peritoneal signs. Absent: distended, tenderness - Skin Skin exam: Present: dry, intact Internal Medicine: Result - Labs CBC & Chem 7: 01/12/17 05:45 01/12/17 02:29 Labs: Short CBC 01/12/17 01/12/17 Range/Units 02:29 05:45 WBC 7.1 7.0 (4.3-11.1) K/mcL Hgb 8.1 L 8.0 L (11.5-15.4) g/dL Hct 26.0 L 25.6 L (35.3-44.9) % Plt Count 298 304 (140-400) K/mcL Neutrophils # 4.4 (1.6-8.9) K/mcL BMP 01/12/17 02:29 Sodium 135 L Potassium 4.6 H Chloride 95 L Carbon Dioxide 27 BUN 62 H D Creatinine 5.29 H D Glucose 45 L Calcium 8.5 L Liver Function 01/12/17 Range/Units 02:29 Total Bilirubin 0.3 (0.2-1.2) mg/dL AST 13 (5-34) Units/L ALT 8 (0-55) Units/L Alkaline Phosphatase 112 (38-126) Units/L Albumin 2.5 L (3.5-5.0) g/dL - ABG Interpretation ABG results: PT/INR, D-dimer PT 10.3 Seconds (9.4-12.1) 01/12/17 05:45 Consult Discharge Plan - Plan Referrals: Nohemi Jewell, [Primary Care Provider] - (Web request 01/12/2017) - Attending Attestation This document has been at least partially created by [employer] recognition technology by Dr. Graham. Errors in grammar, wording or other phrases may exist. If errors are found after the documentation is signed, they will be addressed individually in the addendum section of this document when appropriate.
[2017-01-12] MEDS: Furosemide 40 MG TABLET PO SCH (15:05)
[2017-01-13 04:54] LABS: Hematocrit 27.9 % (35.3-44.9); Hemoglobin 8.5 g/dL (11.5-15.4)
[2017-01-13] MEDS: *HR* OxyCODONE/APAP 5/325 TABLET PO PRN (08:34)
[2017-01-13] MEDS: amLODIPine 5 MG TABLET PO SCH (08:34)
[2017-01-13] MEDS: Lisinopril 20 MG TABLET PO SCH ×2 (08:35→21:37)
[2017-01-13] MEDS: Gabapentin 300 MG CAPSULE PO SCH ×2 (08:35→21:37)
[2017-01-13] MEDS: Insulin LISPRO 300 UNITS/3 ML VIAL SQ SCH ×4 (08:35→21:28)
[2017-01-13] MEDS: Insulin DETEMIR 100 UNIT/ML X5UNITS SQ SCH (08:35)
[2017-01-13] MEDS: Furosemide 40 MG TABLET PO SCH (08:35)
--- NOTE | 2017-01-13 09:58 | Internal Med Progress Note ---
Date of Encounter: 01/13/17 Time of Encounter: 08:50 - Assessment and plan (1) Anemia Current Visit: Yes Status: Chronic Assessment and plan: Stable hemoglobin levels. Due to chronic kidney disease. Qualifiers: Anemia type: other cause Other causes of anemia: chronic disease, kidney Qualified Code(s): N18.9 - Chronic kidney disease, unspecified; D63.1 - Anemia in chronic kidney disease (2) CAD (coronary artery disease), [place] coronary artery Current Visit: Yes Status: Chronic Assessment and plan: continue aspirin, statin and lisinopril Qualifiers: [place] vs. transplanted heart: [place] heart Associated angina: without angina Qualified Code(s): I25.10 - Atherosclerotic heart disease of [place] coronary artery without angina pectoris (3) CVA (cerebral vascular accident) Current Visit: Yes Status: Chronic Assessment and plan: On aspirin and statin. Qualifiers: CVA mechanism: other Qualified Code(s): I63.8 - Other cerebral infarction (4) Diabetes Current Visit: Yes Status: Chronic Assessment and plan: Well-controlled Qualifiers: Diabetes mellitus type: type 2 Diabetes mellitus complication status: with hypoglycemia Diabetes mellitus complication detail: without coma Diabetes mellitus fpc insulin use: with terminal clerk use Qualified Code(s): E11.649 - Type 2 diabetes mellitus with hypoglycemia without coma; Z79.4 - prison ( current) use of insulin (5) Encephalopathy Current Visit: Yes Status: Resolved (6) ESRD (end stage renal disease) Current Visit: Yes Status: Chronic Assessment and plan: Continue dialysis per nephrology recommendations (7) GI bleed Current Visit: Yes Status: Suspected Assessment and plan: Stable hemoglobin levels. On PPI. We will arrange for outpatient follow-up with GI for EGD and colonoscopy. Qualifiers: GI bleed type/associated pathology: melena Qualified Code(s): K92.1 - Melena - Subjective Interval history: Patient is doing well at this time. She denies any dizziness while sitting up in chair but does get dizzy when she stands up quickly. Denies any chest pain and shortness of breath. No nausea or vomiting. Is due for dialysis later today. - Constitutional Vitals: Temp Pulse Resp BP Pulse Ox 97.5 F L 94 17 189/104 99 01/13/17 08:30 01/13/17 08:30 01/13/17 08:30 01/13/17 08:30 01/13/17 08:30 General appearance: Present: cooperative, A&O X 3, no acute distress, answers questions appropriately - Respiratory Respiratory exam: Present: CTAB. Absent: accessory muscle use, rales, rhonchi, wheezes - Cardiovascular Cardiovascular exam: Present: RRR, +S1, +S2. Absent: diastolic murmur, gallop, rubs, systolic murmur - GI/Abdominal GI/Abdominal exam: Present: normal bowel sounds, soft, no peritoneal signs. Absent: distended, tenderness - Extremities Exam Extremities exam: Present: warm, radial pulses palpable and symetrical. Absent : calf tenderness, cyanotic, pedal edema - Skin Skin exam: Present: dry, intact Internal Medicine: Result - Labs CBC & Chem 7: 01/13/17 04:11 01/12/17 02:29 Labs: Short CBC 01/13/17 Range/Units 04:11 Hgb 8.5 L (11.5-15.4) g/dL Hct 27.9 L (35.3-44.9) % - ABG Interpretation ABG results: PT/INR, D-dimer PT 10.3 Seconds (9.4-12.1) 01/12/17 05:45 Consult Discharge Plan - Plan Additional Instructions: Follow-up with GI in 1 week for outpatient colonoscopy and EGD Referrals: Nohemi Jewell DO [Primary Care Provider] - (Web request 01/12/2017) - Attending Attestation This document has been at least partially created by [employer] recognition technology by Dr. Graham. Errors in grammar, wording or other phrases may exist. If errors are found after the documentation is signed, they will be addressed individually in the addendum section of this document when appropriate.
[2017-01-13] MEDS ORDERED: cloNIDine HCl 0.1 MG TABLET PO ONE (10:07)
[2017-01-13] MEDS ORDERED: CloNIDine Patch 0.1 MG PATCH (WEEKLY) TD SCH (10:13)
[2017-01-14] MEDS: *HR* OxyCODONE/APAP 5/325 TABLET PO PRN (00:13)
[2017-01-14] MEDS: Insulin LISPRO 300 UNITS/3 ML VIAL SQ SCH ×2 (07:51→12:05)
[2017-01-14] MEDS: Lisinopril 20 MG TABLET PO SCH (07:53)
[2017-01-14] MEDS: Furosemide 40 MG TABLET PO SCH (07:53)
[2017-01-14] MEDS: Gabapentin 300 MG CAPSULE PO SCH (07:54)
[2017-01-14] MEDS: amLODIPine 5 MG TABLET PO SCH (07:54)
--- NOTE | 2017-01-14 08:31 | Nephrology Progress Note ---
Date of Encounter: 01/14/17 Time of Encounter: 08:29 - Assessment and Plan (1) ESRD (end stage renal disease) Current Visit: Yes Status: Chronic The patient will continue to undergo dialysis every Saturday. I have contacted my office to make arrangements for outpatient dialysis in [place]. (2) Type 2 diabetes mellitus with diabetic chronic kidney disease Current Visit: Yes Status: Acute Qualifiers: Diabetes mellitus chcf insulin use: with intermodal dispatcher use Chronic kidney disease stage: on chronic dialysis Qualified Code(s): E11.22 - Type 2 diabetes mellitus with diabetic chronic kidney disease; N18.6 - End stage renal disease; Z79.4 - adjunct faculty for medical terminology (current) use of insulin; Z99.2 - Dependence on renal dialysis (3) GI bleed Current Visit: Yes Status: Suspected Qualifiers: GI bleed type/associated pathology: melena Qualified Code(s): K92.1 - Melena Subjective Interval history: The patient reports no new complaints. She is [facility] to the [facility] as well as arrangements for outpatient dialysis. Her last dialysis was Saturday. She continues to dialyze every Saturday. Objective - Vital Signs Vital signs: Vital Signs Temp Pulse Resp BP Pulse Ox 01/14/17 07:00 98.0 F 83 17 165/68 96 01/14/17 04:48 98.3 F 78 17 158/77 98 01/14/17 00:07 97.8 F 72 16 132/71 98 01/13/17 19:33 97.6 F 76 17 109/65 95 01/13/17 15:57 97.8 F 78 16 102/63 95 01/13/17 14:45 79 17 109/63 99 01/13/17 13:48 79 16 106/65 99 01/13/17 13:40 83 17 99/63 99 01/13/17 11:59 98.1 F 85 16 113/68 96 01/13/17 10:03 174/84 01/13/17 08:30 97.5 F L 94 17 189/104 99 Intake and Output 01/13/17 01/14/17 01/14/17 23:59 07:59 15:59 Intake Total 470 / 470 380 / 380 50 / 50 Output Total 0 / 0 300 / 300 0 / 0 Balance 470 / 470 80 / 80 50 / 50 Intake: Oral 470 / 470 380 / 380 50 / 50 Output: Urine 0 / 0 300 / 300 0 / 0 Other: Meal Dinner Percent of Meal Consumed 100% Weight 85.2 kg Blood Glucose* 143 295 Patient Weight 01/14/17 23:59 Weight 85.2 kg - General Appearance Exam: Patient is alert and oriented. She is in no acute distress. Lungs clear to auscultation. Heart regular rate and rhythm. Abdomen is benign. There is no peripheral edema. There is a tunnel dialysis catheter in the left chest in a AV fistula in the right upper extremity. - Lab 01/13/17 04:11 01/12/17 02:29 Most recent lab results Calcium 8.5 mg/dL (8.6-10.8) L 01/12/17 02:29 Consult Discharge Plan - Plan Additional Instructions: Follow-up with GI in 1 week for outpatient colonoscopy and EGD Referrals: Nohemi Jewell DO [Primary Care Provider] - (Web request 01/12/2017)
[2017-01-14] MEDS ORDERED: 0.9 % Sodium Chloride 250 ML IVC PRN (08:35)
--- NOTE | 2017-01-14 08:35 | Event Note ---
Date of Encounter: 01/14/17 Time of Encounter: 08:34 The patient's outpatient dialysis schedule is going to be Saturday. Therefore the patient will undergo dialysis today here in the hospital to get her back on schedule. I discussed this with the patient and she said that that is fine with her.
[2017-01-14] MEDS: Insulin DETEMIR 100 UNIT/ML X5UNITS SQ SCH (09:21)
--- NOTE | 2017-01-14 09:42 | Discharge Summary ---
Date of Encounter: 01/14/17 Time of Encounter: 09:15 - Discharge Diagnosis (1) Encephalopathy Priority: Primary Status: Resolved Comments: Multifactorial. Could be medication related and due to prior stroke. Unable to determine. Now resolved (2) Anemia Priority: Secondary Status: Chronic Qualifiers: Anemia type: other cause Other causes of anemia: chronic disease, kidney Qualified Code(s): N18.9 - Chronic kidney disease, unspecified; D63.1 - Anemia in chronic kidney disease (3) CAD (coronary artery disease), [place] coronary artery Priority: Secondary Status: Chronic Qualifiers: [place] vs. transplanted heart: [place] heart Associated angina: without angina Qualified Code(s): I25.10 - Atherosclerotic heart disease of [place] coronary artery without angina pectoris (4) CVA (cerebral vascular accident) Priority: Secondary Status: Chronic Qualifiers: CVA mechanism: other Qualified Code(s): I63.8 - Other cerebral infarction (5) Diabetes Priority: Secondary Status: Chronic Qualifiers: Diabetes mellitus type: type 2 Diabetes mellitus complication status: with hypoglycemia Diabetes mellitus complication detail: without coma Diabetes mellitus parts counterman insulin use: with parts counterman use Qualified Code(s): E11.649 - Type 2 diabetes mellitus with hypoglycemia without coma; 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 (6) ESRD (end stage renal disease) Priority: Secondary Status: Chronic (7) GI bleed Priority: Secondary Status: Suspected Qualifiers: GI bleed type/associated pathology: melena Qualified Code(s): K92.1 - Melena (8) Recurrent falls Priority: Secondary Status: Acute - Discharge Medications Prescriptions: OxyCODONE/APAP 5/325 [Percocet 5/325 MG] 1 each PO Q6HR PRN #14 tablet PRN Reason: Severe Pain Gabapentin [Neurontin] 300 mg PO BID #60 capsule Home Medications: Acetaminophen [Tylenol] 650 mg PO Q6H PRN 01/10/17 [History] Aspirin Enteric Coated [Aspirin EC] 81 mg PO DAILY 01/10/17 [History] Atorvastatin [Lipitor] 40 mg PO HS 01/10/17 [History] Cholecalciferol (D-3) [Vitamin D] 1,000 unit PO DAILY 01/10/17 [History] CloNIDine Patch [Catapres-Tts] 0.1 mg TD QWEEK 01/10/17 [History] DiphenhydraMINE [Benadryl] 25 mg PO Q4H PRN 01/10/17 [History] Furosemide [Lasix] 40 mg PO DAILY 01/10/17 [History] Insulin ASPART [Novolog Flexpen] 0 unit SQ TIDWM 01/10/17 [History] Insulin DETEMIR [Levemir Flextouch] 30 unit SQ QAM 01/10/17 [History] Levothyroxine [Synthroid] 150 mcg PO DAILY 01/10/17 [History] Lisinopril [Zestril] 40 mg PO BID 01/10/17 [History] Pantoprazole Sodium [Protonix] 40 mg PO DAILY 01/10/17 [History] Sertraline [Zoloft] 50 mg PO DAILY 01/10/17 [History] Thiamine (B-1) [Vitamin B-1] 100 mg PO DAILY 01/10/17 [History] hydrOXYzine HCl [Hydroxyzine HCl] 25 mg PO Q8H PRN 01/10/17 [History] Gabapentin [Neurontin] 300 mg PO BID #60 capsule 01/14/17 [Rx] OxyCODONE/APAP 5/325 [Percocet 5/325 MG] 1 each PO Q6HR PRN #14 tablet 01/14/17 [Rx] amLODIPine [Norvasc] 10 mg PO DAILY tablet 01/14/17 [Rx] Allergies/Adverse Reactions: Allergies No Known Allergies Allergy (Verified 01/10/17 11:47) Date of admission: 01/10/17 17:15 Primary care physician: Ryan Campbell Consults: 01/10/17 18:59 Consult to Marine Engine Machinist [CONS] Routine Reason for SW Consult: ECF placement 01/10/17 20:35 Consult to Nephrology [CONS] Routine Consulting Provider: [facility] Reason for Consult: ESRD on HD Call Completed: No 01/11/17 07:35 Consult to Occupational Therapy [CONS] Routine Comment: Evaluate, develop and implement POC Reason for Consult: eval for ecf placement per pt request Consult to Physical Therapy [CONS] Routine Comment: Evaluate, develop and implement POC Reason for Consult: eval for ecf placement per pt request 01/12/17 08:15 Consult to Dialysis [CONS] ONCE 01/14/17 08:45 Consult to Dialysis [CONS] ONCE Discharging clinician: Tash Graham Anticipated date of discharge: 01/14/17 - Patient Status Disposition: Transfer SNF Condition: Fair Functional capacity at discharge: uses cane/walker Overall status at discharge: patient is progressing back to baseline - Discharge Instructions Instructions: Diabetes Mellitus Type 2 in Adults (DC) Follow Up With: Nohemi Jewell DO [Primary Care Provider] - (Web request 01/12/2017) Additional Instructions: Follow-up with GI in 1 week for outpatient colonoscopy and EGD - Diet and Activity Activity: as per physical therapy Diet: diabetic diet, low fat, low cholesterol, low salt diet, other (renal) Hospital course: Ms. Solis is a 57 year old female patient with a history of prior CVA, end- stage renal disease on hemodialysis, coronary artery disease, chronic anemia was hospitalized here after presenting with multiple recurrent falls. She was also confused on presentation but this resolved. CT scan of the head was negative for any acute intracranial abnormality. She did not have any signs of sepsis or infection. She was monitored closely and evaluated by physical therapy who recommended patient be placed to skilled rehabilitation. Her anemia was also worked up and she did have a stool positive for occult blood. However her blood counts have remained stable. She does need outpatient colonoscopy and this will be arranged. Her iron, folic acid, vitamin B12 level are within normal limits. Presently she is clinically stable for discharge and will follow up with her primary care provider and mechanical engineering advisor for management of her chronic medical conditions. She did have a fall here and she tried to move from the bedside commode to her bed on her own. She was complaining of knee pain after that and an x-ray of her right knee was done which was negative for any acute fracture. Her pain is now improving. She did not hit her head. She will be discharged to rehabilitation once she has a bed available and insurance authorization. - Time Spent with Patient Total time spent providing and/or coordinating discharge services: Greater than 30 minutes (40 min) - Constitutional Vitals: Temp Pulse Resp BP Pulse Ox 98.0 F 83 17 165/68 96 01/14/17 07:00 01/14/17 07:00 01/14/17 07:00 01/14/17 07:00 01/14/17 07:00 General appearance: Present: cooperative, A&O X 3, no acute distress, answers questions appropriately - Neck Neck exam general surgery: Present: supple, trachea midline. Absent: lymphadenopathy - Respiratory Respiratory exam: Present: CTAB. Absent: accessory muscle use, rales, rhonchi, wheezes - Cardiovascular Cardiovascular exam: Present: RRR, +S1, +S2. Absent: diastolic murmur, gallop, rubs, systolic murmur - Attending Attestation This document has been at least partially created by [employer] recognition technology by Dr. Graham. Errors in grammar, wording or other phrases may exist. If errors are found after the documentation is signed, they will be addressed individually in the addendum section of this document when appropriate.
--- NOTE | 2017-01-14 09:54 | Physician Discharge Referral ---
ExtendedCare Referral Info Provider in Charge after Transfer: PCP Institutional Level of Care: Skilled - Diagnosis (1) Encephalopathy Priority: Primary Status: Resolved (2) Anemia Priority: Secondary Status: Chronic (3) CAD (coronary artery disease), [place] coronary artery Priority: Secondary Status: Chronic (4) CVA (cerebral vascular accident) Priority: Secondary Status: Chronic (5) Diabetes Priority: Secondary Status: Chronic (6) ESRD (end stage renal disease) Priority: Secondary Status: Chronic (7) GI bleed Priority: Secondary Status: Suspected (8) Recurrent falls Priority: Secondary Status: Acute Prognosis: Fair Aware of Diagnosis: Patient Aware of Prognosis: Patient - Transfer Medications Prescriptions: OxyCODONE/APAP 5/325 [Percocet 5/325 MG] 1 each PO Q6HR PRN #14 tablet PRN Reason: Severe Pain Gabapentin [Neurontin] 300 mg PO BID #60 capsule Home Medications: Acetaminophen [Tylenol] 650 mg PO Q6H PRN 01/10/17 [History] Aspirin Enteric Coated [Aspirin EC] 81 mg PO DAILY 01/10/17 [History] Atorvastatin [Lipitor] 40 mg PO HS 01/10/17 [History] Cholecalciferol (D-3) [Vitamin D] 1,000 unit PO DAILY 01/10/17 [History] CloNIDine Patch [Catapres-Tts] 0.1 mg TD QWEEK 01/10/17 [History] DiphenhydraMINE [Benadryl] 25 mg PO Q4H PRN 01/10/17 [History] Furosemide [Lasix] 40 mg PO DAILY 01/10/17 [History] Insulin ASPART [Novolog Flexpen] 0 unit SQ TIDWM 01/10/17 [History] Insulin DETEMIR [Levemir Flextouch] 30 unit SQ QAM 01/10/17 [History] Levothyroxine [Synthroid] 150 mcg PO DAILY 01/10/17 [History] Lisinopril [Zestril] 40 mg PO BID 01/10/17 [History] Pantoprazole Sodium [Protonix] 40 mg PO DAILY 01/10/17 [History] Sertraline [Zoloft] 50 mg PO DAILY 01/10/17 [History] Thiamine (B-1) [Vitamin B-1] 100 mg PO DAILY 01/10/17 [History] hydrOXYzine HCl [Hydroxyzine HCl] 25 mg PO Q8H PRN 01/10/17 [History] Gabapentin [Neurontin] 300 mg PO BID #60 capsule 01/14/17 [Rx] OxyCODONE/APAP 5/325 [Percocet 5/325 MG] 1 each PO Q6HR PRN #14 tablet 01/14/17 [Rx] amLODIPine [Norvasc] 10 mg PO DAILY tablet 01/14/17 [Rx] Allergies/Adverse Reactions: Allergies No Known Allergies Allergy (Verified 01/10/17 11:47) - Respiratory Orders Smoking Cessation: Smoking cessation has been advised. For more information, call the [place] Tobacco Quit Line at 1-051-ATWQ-NOW. - Ancillary Orders May consult with Dentist, Clerk Secretary, Big Data Admin PRN - Advance Directives Code Status: Full Code - Rehabiliation Orders Rehab Potential: Fair Rehab Orders: Evaluation for Physical Therapy, Evaluation for Occupational Therapy - Diet Orders No Concentrated Sweets (Diabetic), Renal, Cardiac CERTIFICATION: I certify that the transfer of the above named patient to an Extended Care Facility is necessary for the continuing treatment of the diagnosis listed. The above information is true and accurate reflection of patient's current condition. Confidential - Redisclosure prohibited without a patient's written consent.
[2017-01-14] MEDS ORDERED: *HR* OxyCODONE/APAP 5/325 TABLET PO PRN (10:48)
[2017-01-14] MEDS ORDERED: traMADol 50 MG TABLET PO PRN (10:49)
[2017-01-14 13:55] VITALS: BP 117/78
== END 2017-01-14 15:44 ==
LOC: 2ANU 11:41 → EMEROO 11:41 → 2ANU 18:39
PROVIDERS: ADMIT Registered Nurse; ATTEND Internal Medicine

== ENCOUNTER 2021-04-26 14:19 | Inpatient (IN) ==
[2021-04-26] MEDS ORDERED: Naloxone 0.4 MG/ML INJ IVP PRN (22:47)
[2021-04-26] MEDS ORDERED: D5% in Water 1,000 ML IVC PRN (22:50)
[2021-04-26] MEDS ORDERED: *HR* Dextrose 50 % in Water (Syg) 50 ML SYRINGE IVP PRN (22:50)
[2021-04-26] MEDS ORDERED: Dextrose Gel 15 GM/37.5 ML TUBE PO PRN ×2 (22:50)
[2021-04-27] MEDS: Insulin LISPRO 300 UNITS/3 ML VIAL SUBQ SCH ×5 (00:22→21:41)
[2021-04-27] MEDS ORDERED: Perflutren Lipid Microsphere 1.3 ML in 0.9 % Sodium Chloride 8.7 ML IVP PRN (00:53)
[2021-04-27 01:24] LABS: Basophils % 0.5 %; Eosinophils # 0.4 K/mcL (0.0-0.6); Eosinophils % 6.4 %; Hematocrit 38.4 % (35.3-44.9); Hemoglobin 11.9 g/dL (11.5-15.4); Immature Granulocytes % 0.2 % (0-4); Lymphocytes # 0.7 K/mcL (0.6-4.6); Lymphocytes % 12.7 %; Mean Corpuscular Hemoglobin 30.2 pg (28.0-33.3); Mean Corpuscular Volume 97.5 fL (83.0-100.0); Mean Platelet Volume 12.3 fL (9.4-12.4); Monocytes # 0.5 K/mcL (0.0-1.3); Monocytes % 8.9 %; Neutrophils # 3.9 K/mcL (1.6-8.9); Platelet Count 166 K/mcL (140-400); Red Blood Count 3.94 M/mcL (3.82-4.97); Red Cell Distribution Width 16.2 % (11.5-14.5); Segmented Neutrophils % 71.3 %; White Blood Count 5.5 K/mcL (4.3-11.1)
[2021-04-27 01:46] LABS: Calcium 8.4 mg/dL (8.6-10.3); Phosphorous 5.2 mg/dL (2.7-4.5); Potassium 5.3 mEq/L (3.5-5.1)
[2021-04-27] MEDS: *HR* Heparin 5,000 UNIT/ML VIAL SQ SCH ×2 (06:55→16:40)
[2021-04-27 10:03] LABS: Hepatitis B Surface Antibody < 3.10 mIU/mL
[2021-04-27 10:14] LABS: Hepatitis B Surface Antigen Nonreactive (Nonreactive)
[2021-04-27] MEDS: Calcium Gluconate 1gm/50mL 1 GM/50 ML BAG IVPB SCH ×2 (10:43→12:32)
[2021-04-27] MEDS ORDERED: *HR* HYDROcodone/Acet 5/325 mg TABLET PO PRN (14:20)
[2021-04-27] MEDS ORDERED: SODIUM ZIRCONIUM CYCLOSILICATE 5 GM POWD.PACK PO SCH (14:30)
[2021-04-27] MEDS: carvediloL 6.25 MG TABLET PO SCH (16:15)
[2021-04-27] MEDS: Calcium Acetate 667 MG CAPSULE PO SCH ×2 (16:15→21:40)
[2021-04-27] MEDS: Melatonin 3 MG TABLET PO SCH (21:40)
[2021-04-27] MEDS: cloNIDine HCL 0.1 MG TABLET PO SCH (21:40)
[2021-04-27] MEDS: hydrALAZINE 25 MG TABLET PO SCH (21:40)
[2021-04-27] MEDS: Gabapentin 300 MG CAPSULE PO SCH (21:40)
[2021-04-27] MEDS: Apixaban 2.5 MG TABLET PO SCH (21:40)
[2021-04-28 03:21] LABS: Basophils % 0.5 %; Eosinophils # 0.4 K/mcL (0.0-0.6); Eosinophils % 6.2 %; Hematocrit 36.3 % (35.3-44.9); Hemoglobin 11.3 g/dL (11.5-15.4); Immature Granulocytes % 0.3 % (0-4); Lymphocytes # 0.8 K/mcL (0.6-4.6); Lymphocytes % 11.6 %; Mean Corpuscular HGB Conc 31.1 g/dL (31.6-35.5); Mean Corpuscular Hemoglobin 30.4 pg (28.0-33.3); Mean Corpuscular Volume 97.6 fL (83.0-100.0); Mean Platelet Volume 12.4 fL (9.4-12.4); Monocytes # 0.8 K/mcL (0.0-1.3); Monocytes % 11.9 %; Neutrophils # 4.6 K/mcL (1.6-8.9); Platelet Count 170 K/mcL (140-400); Red Blood Count 3.72 M/mcL (3.82-4.97); Segmented Neutrophils % 69.5 %; White Blood Count 6.6 K/mcL (4.3-11.1)
[2021-04-28 03:42] LABS: Magnesium 2.2 mg/dL (1.6-2.6); Potassium 5.8 mEq/L (3.5-5.1)
[2021-04-28] MEDS: hydrALAZINE 25 MG TABLET PO SCH ×3 (06:02→22:09)
[2021-04-28] MEDS: Calcium Acetate 667 MG CAPSULE PO SCH ×4 (06:03→22:09)
[2021-04-28 07:09] LABS: Estimated Average Glucose 200 mg/dl; Hemoglobin A1C 8.6 %
[2021-04-28] MEDS ORDERED: Calcium Gluconate 1gm/50mL 1 GM/50 ML BAG IVPB SCH (07:30)
[2021-04-28] MEDS ORDERED: 0.9 % Sodium Chloride 250 ML IVC PRN (07:46)
[2021-04-28] MEDS ORDERED: 0.9 % Sodium Chloride 1,000 ML PRIME SCH (08:15)
[2021-04-28] MEDS: Gabapentin 300 MG CAPSULE PO SCH ×2 (08:54→22:09)
[2021-04-28] MEDS: Apixaban 2.5 MG TABLET PO SCH (08:55)
[2021-04-28] MEDS: carvediloL 6.25 MG TABLET PO SCH ×2 (08:55→17:59)
[2021-04-28] MEDS ORDERED: amLODIPine 5 MG TABLET PO SCH (09:00)
[2021-04-28] MEDS ORDERED: lisinopriL 20 MG TABLET PO SCH (09:00)
[2021-04-28] MEDS ORDERED: SODIUM ZIRCONIUM CYCLOSILICATE 5 GM POWD.PACK PO SCH (09:00)
[2021-04-28] MEDS ORDERED: Aspirin Enteric Coated 81 MG Tablet PO SCH (09:00)
[2021-04-28] MEDS ORDERED: *HR* Amiodarone 200 MG TABLET PO SCH (09:00)
[2021-04-28] MEDS ORDERED: Renal Vitamin 1 CAP CAPSULE PO SCH (09:00)
[2021-04-28] MEDS: cloNIDine HCL 0.1 MG TABLET PO SCH ×2 (09:03→22:09)
[2021-04-28] MEDS: Insulin LISPRO 300 UNITS/3 ML VIAL SUBQ SCH ×4 (09:07→22:10)
[2021-04-28] MEDS ORDERED: Lidocaine 4% CREAM (LMX) 5 GM TP SCH (14:20)
[2021-04-28 17:49] LABS: Adenovirus Not Detected (Not Detect); Bordetella Pertussis Not Detected (Not Detect); Chlamydophila pneumoniae Not Detected (Not Detect); Coronavirus 229E Not Detected (Not Detect); Coronavirus HKU1 Not Detected (Not Detect); Coronavirus NL63 Not Detected (Not Detect); Coronavirus OC43 Not Detected (Not Detect); Human Metapneumovirus Not Detected (Not Detect); Human Rhinovirus/Enterovirus Not Detected (Not Detect); Influenza A Subtype 2009 H1 Not Detected (Not Detect); Influenza B Not Detected (Not Detect); Mycoplasma pneumoniae Not Detected (Not Detect); Parainfluenza Virus 1 Not Detected (Not Detect); Parainfluenza Virus 2 Not Detected (Not Detect); Parainfluenza Virus 3 Not Detected (Not Detect); Parainfluenza Virus 4 Not Detected (Not Detect); Respiratory Syncytial Virus Not Detected (Not Detect); SARS-CoV-2 Not Detected (Not Detect)
[2021-04-28] MEDS ORDERED: Apixaban 5 MG TABLET PO SCH (21:00)
[2021-04-28] MEDS: Melatonin 3 MG TABLET PO SCH (22:09)
[2021-04-28 23:24] VITALS: BP 159/80; PULSE 77; TEMP 98; O2SAT 96
[2021-04-29 01:30] LABS: Basophils % 0.5 %; Eosinophils # 0.3 K/mcL (0.0-0.6); Eosinophils % 5.5 %; Hematocrit 34.6 % (35.3-44.9); Hemoglobin 10.9 g/dL (11.5-15.4); Immature Granulocytes % 0.5 % (0-4); Lymphocytes # 0.7 K/mcL (0.6-4.6); Lymphocytes % 11.8 %; Mean Corpuscular HGB Conc 31.5 g/dL (31.6-35.5); Mean Corpuscular Hemoglobin 30.6 pg (28.0-33.3); Mean Corpuscular Volume 97.2 fL (83.0-100.0); Mean Platelet Volume 12.4 fL (9.4-12.4); Monocytes # 0.9 K/mcL (0.0-1.3); Monocytes % 14.9 %; Neutrophils # 3.9 K/mcL (1.6-8.9); Platelet Count 155 K/mcL (140-400); Red Blood Count 3.56 M/mcL (3.82-4.97); Red Cell Distribution Width 15.9 % (11.5-14.5); Segmented Neutrophils % 66.8 %; White Blood Count 5.8 K/mcL (4.3-11.1)
[2021-04-29 01:41] LABS: Calcium 8.8 mg/dL (8.6-10.3); Potassium 5.3 mEq/L (3.5-5.1)
== END 2021-04-29 03:00 | DRG 640 ==
LOC: 2ANU → SUATTDRO 19:47
PROVIDERS: ADMIT General Practice; ATTEND Pharmacist